=== PATIENT | male | born 1945 | race Caucasian/White ===

== ENCOUNTER → 2017-01-07 | Outpatient (CLI) | payer MEDICARE | END | disposition home or self-care (01) | LOC: PTMAIN 10:56 | PROVIDERS: ATTEND Otolaryngology | DX: K21.9 Gastro-esophageal reflux disease without esophagitis (principal); M12.9 Arthropathy, unspecified | CPT/HCPCS: 31579; 94060; 94726; 94729 ==

== ENCOUNTER → 2017-01-12 | Outpatient (CLI) | payer MEDICARE ==
--- NOTE | 2017-01-12 08:42 | CT ---
EXAMINATION TYPE: CT sinus wo con DATE OF EXAM: 01/12/2017 8:28 AM COMPARISON: NONE HISTORY: Patient complains of chronic sinus drainage, post nasal drainage, and voice loss x2 years. CT DLP: 667.3 mGycm CONTRAST: None The paranasal sinuses are examined in the axial plane at 2 mm thick sections. Reconstructed images i n the coronal plane were obtained. There is dental amalgam scatter artifact Very minimal medial wall right maxillary mucosal thickening is present. Left maxillary sinus is clear . There is opacification of a mid right ethmoid air cell. Remaining ethmoid air cells are clear. Th e sphenoid sinuses are clear. The frontal sinuses are clear. The septum is evaluated. There is septal deviation to the left. The ostiomeatal units are patent. Mastoid air cells within the [id number] are clear IMPRESSIONS: 1. Minimal mucosal thickening right maxillary sinus and mid right ethmoid air cell
== END ==
LOC: RADCTMAIN 08:12
PROVIDERS: ATTEND Otolaryngology
DX: J32.0 Chronic maxillary sinusitis (principal)
CPT/HCPCS: 70486

== ENCOUNTER → 2017-03-26 | Outpatient (CLI) | payer MEDICARE ==
--- NOTE | 2017-03-26 12:44 | PN ---
DATE OF SERVICE: 03/26/2017 The 71-year-old gentleman has been followed in the [facility] for treatment of obstructive sleep apnea-hypopnea syndrome. Patient continued to use his CPAP equipment every night for the whole night without significant problems with nasal PLO mask. No snoring with the machine. No sleepiness. [place] Sleepiness Scale is 4. Patient brought his CPAP unit. I checked machine, usage is 100% of the time more than 4 hours, average 8 hours per night. Pressure is 9 cm of water. Leak is 19 L/min. Apnea-hypopnea index was 6.2 related to several central apneas. MEDICATIONS: Pravastatin, dicyclomine, amlodipine, Claritin. During physical exam, patient in no distress. BP 136/77, HR 64, RR 16. Height 5, 8. Weight 183 which is 5 pounds more than during the titration. BMI 27.8. Temperature 97.9. Oxygen saturation at room air 93%. Extremely low position of soft palate. Neck: Supple. No JVD. Thyroid is not palpable. LUNGS: Clear to percussion and to auscultation. Good air exchange. No wheezing or rhonchi. HEART: S1, S2 regular. No murmurs, gallops, or rubs. ABDOMEN: Soft and nontender. Bowel sounds are present. No organomegaly appreciated. EXTREMITIES: No clubbing or cyanosis. COORDINATING PRODUCER: Awake, alert, and oriented x3. Cranial nerves 2 to 7 intact. There is no fasciculation or atrophy noted. No focal deficits observed. IMPRESSION: 1. Obstructive sleep apnea-hypopnea syndrome. Patient demonstrated 100% compliance with treatment, benefiting from treatment. 2. Hypertension. 3. History of ( ). 4. Hyperlipidemia. 5. Back problem. 6. Status post total hip replacement. 7. Status post pneumonia in the past. PLAN: 1. Continue treatment with CPAP with the same pressure. Patient has minimal abnormalities of respiration related to central sleep apnea, but I think we do not need any changes of treatment at the present time. 2. Sleep hygiene with regular time in bed for at least 8 hours. 3. No driving if feeling any sleepiness. 4. The patient should receive new set of the mask every 4 months. Thank you very much for allowing me to participate in the management of your patient. Sincerely, Lg Grajeda MD, PhD, FAASM. Diplomat of [place] [employer], Sleep Medicine Board by [place] [employer] [place] [employer] [facility] [place]
== END | disposition home or self-care (01) ==
LOC: SLEEP 10:51
PROVIDERS: ATTEND Internal Medicine
DX: G47.33 Obstructive sleep apnea (adult) (pediatric) (principal); E78.5 Hyperlipidemia, unspecified; I10 Essential (primary) hypertension; Z79.899 Other long term (current) drug therapy; Z91.09 Other allergy status, other than to drugs and biological substances

== ENCOUNTER → 2018-04-08 | Outpatient (CLI) | payer MEDICARE ==
--- NOTE | 2018-04-08 17:23 | PN ---
PROGRESS NOTE DATE OF SERVICE: 04/08/2018 This patient is a 72-year-old gentleman who has been followed in the sleep center for treatment of obstructive sleep apnea-hypopnea syndrome. Patient continues successfully using his CPAP equipment every night for the whole night without significant problems related to mask fitting, pressure or humidification. [place] Sleepiness Scale today is 3. I checked the patient's CPAP unit. CPAP pressure is 9 cm of water. Usage is 100% of the time for more than 4 hours, average 7.6 hours. Leak is 70 L/minute, which is acceptable. Apnea-hypopnea index reading for the last month is 3.8, which is in normal range. MEDICATIONS: 1. Pravastatin. 2. Dicyclomine. 3. Amlodipine. 4. Claritin. PHYSICAL EXAMINATION: GENERAL A pleasant gentleman without distress. VITAL SIGNS :BP 119/65, HR 58, RR 16, height 5 feet 8 inches, weight 183, which is the same as one year ago. BMI 27.8, temperature 98.2, oxygen saturation at room air 94% HEENT: PERRLA, EOMI. Evaluation of oropharynx showed tongue protrudes midline; extremely low position of soft palate. NECK: Supple. No JVD. Thyroid is not palpable. LUNGS: Clear to percussion and to auscultation. Good air exchange. No wheezing or rhonchi. HEART: S1, S2 regular. No murmurs, gallops or rubs. ABDOMEN: Soft and nontender. Bowel sounds are present. No organomegaly appreciated. EXTREMITIES : No clubbing or cyanosis. POWER SWITCHBOARD OPERATOR: Awake, alert, and oriented X3. Cranial nerves 2 to 7 intact. There is no fasciculation or atrophy. noted. No focal deficits observed. IMPRESSION: 1. Obstructive sleep apnea-hypopnea syndrome. Patient has demonstrated 100% compliance with treatment, benefitting from treatment. 2. Hypertension. 3. Hyperlipidemia. 4. Back problems. 5. Status post total hip replacement. 6. Status post pneumonia in the past. 7. Status post basal cell carcinoma removed from right leg in 2013. PLAN: 1. Patient will continue to use his CPAP equipment every night for the whole night. 2. Watching weight. 3. Sleep hygiene with regular time in bed for at least 8 hours. 4. No driving if feeling any sleepiness. 5. Prescription for all necessary CPAP supplies, including mask, tube, filters. 6. Follow-up visit in one year or earlier if patient has any problems. Thank you very much for allowing me to participate in the management of your patient. Sincerely, Lg Grajeda MD, PhD, FAASM Diplomat of [place] [employer] [place] [employer] [facility] [place] MMNARDAL / BONITA: [id number] /
== END | disposition home or self-care (01) ==
LOC: SLEEP 14:48
PROVIDERS: ATTEND Internal Medicine
DX: G47.33 Obstructive sleep apnea (adult) (pediatric) (principal); I10 Essential (primary) hypertension; E78.5 Hyperlipidemia, unspecified; Z96.641 Presence of right artificial hip joint; Z79.899 Other long term (current) drug therapy

== ENCOUNTER 2019-01-13 11:37 | Day surgery (SDC) | payer MEDICARE ==
[2019-01-10 14:07] VITALS: BMI 26.6
[~2019-01-13 11:37] MED LIST: LACTATED RINGERS 1,000 ML IV SCH; LIDOCAINE 1% 20 ML VIAL (10MG/ML) FOR IV START INTRADERMA PRN
[2019-01-13 12:06] VITALS: TEMP 98.5
[2019-01-13 12:07] LABS: Glucose,Whole Blood 86 mg/dL (75-99)
[2019-01-13] MEDS ORDERED: ONDANSETRON 4 MG/2 ML VIAL IVP ONE (12:09)
[2019-01-13] MEDS ORDERED: PROPOFOL 10 MG/ML 20 ML VIAL IV ONE (12:27)
[2019-01-13] MEDS ORDERED: LIDOCAINE 1% INJ 10MG/ML (20 ML MDV) ONE (12:27)
[2019-01-13 13:04] VITALS: RESP 18
[2019-01-13 13:24] VITALS: BP 104/51; PULSE 64
--- NOTE | 2019-01-13 13:24 | P.PCN ---
Date of Procedure: 01/13/19 Procedure(s) Performed: Procedure: Total colonoscopy. Preoperative diagnosis: Positive cologuard test. Postoperative diagnosis: Exam within normal limits. Preparation: HalfLytely prep. Sedation: Was provided by anesthesia. Brief clinical history: The patient is a 73-year-old male who is scheduled for this evaluation because of positive Cologuard test. The patient has no abdominal complaints, leading or anemia. His last colonoscopy was around 12 years ago. Procedure: With the patient on his left lateral decubitus position and after informed consent and adequate sedation, the perianal area was inspected and it did not show any fissures or fistulas. There were no masses felt on digital rectal examination. The Olympus CFH 190L video colonoscope was then inserted in the rectum in the usual fashion and advanced to the cecum. The mucosa appeared healthy. No obvious polyps or tumors were seen or any obvious diverticular disease or other pathology. I retroflexed the endoscope in the rectum before the endoscope was withdrawn. The patient tolerated the procedure well Plan: The patient was reassured. In the absence of upper GI complaints or anemia, I did not recommend an upper GI workup at this time and that can be kept as a contingency. He will follow up with you as planned and further plans will be made based on his course.
== END 2019-01-13 13:37 | disposition home or self-care (01) ==
LOC: ORWHC2ENDO 11:37
DX: R19.5 Other fecal abnormalities (principal); K21.9 Gastro-esophageal reflux disease without esophagitis; J44.9 Chronic obstructive pulmonary disease, unspecified; I10 Essential (primary) hypertension; E78.5 Hyperlipidemia, unspecified; G47.33 Obstructive sleep apnea (adult) (pediatric); Z85.828 Personal history of other malignant neoplasm of skin; Z91.030 Bee allergy status; Z91.013 Allergy to seafood; Z79.899 Other long term (current) drug therapy
CPT/HCPCS: 45378; J2405; J2001; J2704

== ENCOUNTER → 2019-02-01 | Outpatient (CLI) | payer MEDICARE | END | disposition home or self-care (01) | LOC: CPPFTMAIN 11:43 | PROVIDERS: ATTEND Family Medicine | DX: J44.9 Chronic obstructive pulmonary disease, unspecified (principal) | CPT/HCPCS: 94060; 94726; 94729 ==

== ENCOUNTER → 2019-04-07 | Outpatient (CLI) | payer MEDICARE ==
--- NOTE | 2019-04-07 12:15 | PN ---
PROGRESS NOTE DATE OF SERVICE: 04/07/2019 73-year-old gentleman who has been followed in the Sleep Center for treatment of obstructive sleep apnea-hypopnea syndrome. Patient successfully continued to use his CPAP equipment every night for the whole night. No snoring while using his CPAP. I checked his CPAP unit. CPAP pressure is 9 cm of water. Usage is 30/30 nights for more than 4 hours. Average usage is 7.7 hours. Leak is 18 L/minute, which is borderline. Apnea-hypopnea index reading for the last month is 3.5, which is normal range, for the last year in the range of 5, which is acceptable. [place] Sleepiness Scale today is only 1. Recently patient had exacerbation of COPD. On prednisone with decreasing dose until a few more days. MEDICATIONS: Prednisone, cetirizine, omeprazole, amlodipine, atorvastatin, albuterol on a p.r.n. basis. PHYSICAL EXAMINATION: During physical exam, patient in no distress. BP 137/66, HR 58, RR 16, height 5 feet 8 inches, weight 187 pounds. Body mass index 28.4, temperature 98.1, oxygen saturation at room air 94%. HEENT: Oropharynx extremely low soft palate, Mallampati 4. Neck Supple, no JVD. Thyroid is not palpable. LUNGS Clear to percussion and to auscultation. Good air exchange. No wheezing or rhonchi. HEART S1, S2 regular. No murmurs, gallops, or rubs. ABDOMEN Soft and nontender. Bowel sounds are present. No organomegaly appreciated. EXTREMITIES No clubbing or cyanosis. LEATHER ROLLER Awake, alert, and oriented X3. Cranial nerves 2 to 7 intact. There is no fasciculation or atrophy. noted. No focal deficits observed. IMPRESSION: 1. Obstructive sleep apnea-hypopnea syndrome. The patient demonstrated 100% compliance with treatment benefitting from treatment. 2. Hypertension. 3. History of chronic obstructive pulmonary disease. 4. Hyperlipidemia. 5. Back problems. 6. Status post total right hip replacement. 7. Status post bilateral cataract surgery. 8. Status post retina repair surgery on the right side. 9. Status post right shoulder repair. PLAN: 1. Patient will continue to use CPAP equipment every night for the whole night. 2. We will maintain all necessary CPAP prescriptions including a prescription for a nasal pillow, mask, AirFit P 10 large size, regular tube filters. Thank you very much for allowing me to participate in management of your patient. Sincerely, Lg Grajeda MD, PhD, FAASM Diplomat of [place] [employer] [place] [employer] [facility] [place] MMODL / MARGEN: [id number] /
== END | disposition home or self-care (01) ==
LOC: SLEEP 11:29
PROVIDERS: ATTEND Internal Medicine
DX: G47.33 Obstructive sleep apnea (adult) (pediatric) (principal); I10 Essential (primary) hypertension; J44.1 Chronic obstructive pulmonary disease with (acute) exacerbation; E78.5 Hyperlipidemia, unspecified; M54.9 Dorsalgia, unspecified; Z96.641 Presence of right artificial hip joint; Z98.42 Cataract extraction status, left eye; Z98.41 Cataract extraction status, right eye; Z99.89 Dependence on other enabling machines and devices; Z98.890 Other specified postprocedural states; Z79.52 Long term (current) use of systemic steroids

== ENCOUNTER → 2019-04-13 | Outpatient (CLI) | payer MEDICARE ==
--- NOTE | 2019-04-13 11:02 | CT ---
EXAMINATION TYPE: CT chest wo con DATE OF EXAM: 04/13/2019 COMPARISON: None HISTORY: Chronic cough CT DLP: 480 mGycm, Automated exposure control for dose reduction was used. CONTRAST: Performed injected with 0 mL of Isovue 300. TECHNIQUE: Axial images were obtained at 5 mm thick sections. Reconstructed images are reviewed on TappnGo computer in the coronal plane. FINDINGS: Portion of the thyroid visualized is normal. There is a 0.6 cm nodule adjacent to the major fissure on the right in the upper lung field. Series 4 image 31. No enlarged mediastinal or hilar adenopathy is evident. The ascending aorta diameter at the level o f the main pulmonary artery is 3.2 cm. The main pulmonary artery diameter at the bifurcation is 2.4 cm. Some mild coronary artery calcification is present. Limited CT sections are obtained through the upper abdomen. There is a 1.1 cm cyst at the medial righ t lobe liver measuring 2 Hounsfield units IMPRESSIONS: 1. Solitary 0.6 cm nodule right upper lung field new the major fissure. 2. Hepatic cyst. 3. Follow-up exam in 3-6 months is recommended for reevaluation.
== END | disposition home or self-care (01) ==
LOC: RADCTMAIN 09:33
PROVIDERS: ATTEND Internal Medicine
DX: R91.1 Solitary pulmonary nodule (principal); Z91.013 Allergy to seafood
CPT/HCPCS: 71250

== ENCOUNTER 2019-05-25 11:45 | Day surgery (SDC) | payer MEDICARE ==
[2019-05-23 13:09] VITALS: BMI 26.6
[~2019-05-25 11:45] MED LIST changes: +ALBUTEROL NEB (CONC) 2.5 MG/0.5 ML INHALATION ONE; +LIDOCAINE 2% (PF) 20 MG/ML 5 ML VIAL INHALATION ONE; +LIDOCAINE VISCOUS 300 MG/15 ML CUP MUCOUS MEM ONE; +SODIUM CHLORIDE 0.9% 1,000 ML IV SCH
[2019-05-25 12:16] VITALS: TEMP 97.9
[2019-05-25] MEDS ORDERED: KETAMINE 10 MG/ML 20 ML VIAL ONE (13:32)
[2019-05-25] MEDS ORDERED: PROPOFOL 10 MG/ML 20 ML VIAL IV ONE (13:32)
[2019-05-25] MEDS ORDERED: GLYCOPYRROLATE 0.2 MG/ML 2 ML VIAL ONE (13:32)
[2019-05-25] MEDS ORDERED: LIDOCAINE 1% INJ 10MG/ML (20 ML MDV) ONE (13:32)
[2019-05-25] MEDS ORDERED: MIDAZOLAM 2 MG/2 ML VIAL ONE (13:32)
[2019-05-25] MEDS ORDERED: LIDOCAINE 2% INJ 20 MG/ML INTRATRACH ONE (13:51)
[2019-05-25 14:18] VITALS: BP 112/73; PULSE 70; RESP 16
[2019-05-25 17:16] LABS: Appearance,BF Hazy; Color,BF Colorless; Nucleated Cells, Body Fluid 72 /uL; RBC, Body Fluid 248 /uL
[2019-05-25 17:29] LABS: Mononuclear WBC,Body Fluid 11 %; Polynuclear WBC,Body Fluid 89 %; Total Cells Counted,Body Fluid 100
--- NOTE | 2019-05-25 19:02 | PCN ---
PROCEDURE NOTE OPERATIVE REPORT: Bronchoscopy and bronchoalveolar lavage of the right middle lobe. PREOPERATIVE DIAGNOSIS: Chronic cough. POSTOPERATIVE DIAGNOSIS: Chronic cough. INDICATION FOR THE PROCEDURE: Chronic cough. ANESTHESIA USED: IV conscious sedation. DESCRIPTION OF THE PROCEDURE: The patient was prepared according to the bronchoscopy protocol. O2 was applied via nasal cannula. We monitored his O2 saturation continuously, blood pressure was intermittently monitored, and cardiac rhythm was continuously monitored. After adequate IV conscious sedation, the left naris was anesthetized, the bronchoscope was inserted through the left naris down to the area of the vocal cords. Vocal cords were patent. Lidocaine was applied over the vocal cords, and the bronchoscope was advanced further down to the trachea. Thorough examination done of the trachea, right upper lobe, right middle lobe, right lower lobe, left upper lobe, lingula, and left lower lobe. There was no evidence of any endobronchial pathology whatsoever. There was no evidence of any purulent secretions. Then, the bronchoscope was wedged into the right middle lobe, and bronchoalveolar lavage of the right middle lobe was done. The procedure was well tolerated, no evidence of any immediate complications. The fluid obtained from the right upper lobe was sent for different diagnostic cultures. MMODL / IJN: [id number] /
== END 2019-05-25 15:02 | disposition home or self-care (01) ==
LOC: ORWHC2ENDO 11:45
PROVIDERS: ATTEND Internal Medicine
DX: R05 Cough (principal); I10 Essential (primary) hypertension; E78.5 Hyperlipidemia, unspecified; G47.33 Obstructive sleep apnea (adult) (pediatric); J44.9 Chronic obstructive pulmonary disease, unspecified; N42.9 Disorder of prostate, unspecified; Z91.030 Bee allergy status; Z91.013 Allergy to seafood; Z87.891 Personal history of nicotine dependence; Z85.828 Personal history of other malignant neoplasm of skin; Z79.899 Other long term (current) drug therapy
CPT/HCPCS: 31624; 87070; 87077; 87102; 87116; 87186; 87205; 87206; 87252; 87496; 87498; 87502; 87529; 87634; 87798; 89050

== ENCOUNTER → 2020-01-24 | Outpatient (CLI) | payer MEDICARE ==
--- NOTE | 2020-01-24 13:06 | CT ---
EXAMINATION TYPE: CT chest wo con DATE OF EXAM: 01/24/2020 COMPARISON: CT chest dated 04/13/2019 HISTORY: Cough for 16+ months CT DLP: 340.5 mGycm. Automated Exposure Control for Dose Reduction was Utilized. TECHNIQUE: CT scan of the thorax is performed without IV contrast. FINDINGS: LUNGS: Smaller known 4 mm pulmonary nodule along the right interlobar fissure previously measured 6 m m and likely represents an intrafissural lymph node given the smaller size on the current exam. Addit ional 4 mm solid pulmonary nodule in the superior segment of the right lower lobe is retrospectively stable from the prior. No new focal consolidation seen. There is no pleural effusion or pneumothora x seen. The tracheobronchial tree is patent. MEDIASTINUM: Lack of IV contrast is noted to limit evaluation for mediastinal and especially hilar ad enopathy. There are no definitive greater than 1 cm hilar or mediastinal lymph nodes. There is a trac e pericardial effusion seen anteriorly measuring 8 mm in greatest thickness. Moderate coronary calcif ications. OTHER: Small hiatal hernia. Partially visualized probable right midpole renal cyst measuring 1.4 cm. Probable left renal sinus cysts. Punctate calcification of the pancreatic uncinate process, sequela o f chronic pancreatitis. There is redemonstration of 2 fluid attenuated hepatic cysts. Moderate multil evel degenerative change of the thoracic spine. IMPRESSION: 1. Stable 4 mm superior segment right lower lobe pulmonary nodule, retrospectively unchanged from the prior. 2. Decrease in size of the right-sided nodule along the interlobar fissure, likely an intrafissural b enign lymph node. 3. Moderate coronary artery calcifications, marker of coronary artery disease. Trace pericardial effu jeremy is also seen.
== END | disposition home or self-care (01) ==
LOC: RADCTMAIN 09:31
PROVIDERS: ATTEND Internal Medicine
DX: J98.4 Other disorders of lung (principal); R91.1 Solitary pulmonary nodule; I25.10 Atherosclerotic heart disease of native coronary artery without angina pectoris; Z91.013 Allergy to seafood; Z88.1 Allergy status to other antibiotic agents
CPT/HCPCS: 71250

== ENCOUNTER → 2020-01-31 | Outpatient (CLI) | payer MEDICARE ==
[~2020-01-31] MED LIST changes: -ALBUTEROL NEB (CONC) 2.5 MG/0.5 ML INHALATION ONE; -LACTATED RINGERS 1,000 ML IV SCH; -LIDOCAINE 1% 20 ML VIAL (10MG/ML) FOR IV START INTRADERMA PRN; -LIDOCAINE 2% (PF) 20 MG/ML 5 ML VIAL INHALATION ONE; -LIDOCAINE VISCOUS 300 MG/15 ML CUP MUCOUS MEM ONE; +REGADENOSON 0.4 MG/5 ML SYRINGE IV ONE; -SODIUM CHLORIDE 0.9% 1,000 ML IV SCH
--- NOTE | 2020-01-31 11:36 | NM ---
EXAMINATION TYPE: NM stress lexiscan cardiolite DATE OF EXAM: 01/31/2020 COMPARISON: Prior study October 20, 2012. HISTORY: Personal history of hypertension and tobacco use in the past along with hypercholesteremia a nd COPD with prior heart catheterization presents with chest pain, difficulty breathing, and abnormal EKG with left bundle branch block. TECHNIQUE: After the intravenous administration of 9.9 mCi Tc 99m Sestamibi - Cardiolite resting SPE CT images acquired 65 minutes post injection. The patient received 0.4mg Lexiscan, 27 mCi Tc 99m Sestamibi - Stress images obtained 30 minutes post injection FINDINGS: Review of stress and rest SPECT images demonstrates diminished radiotracer uptake involving the later al left ventricular wall extending inferiorly on both rest and stress SPECT images suspicious for are a of old infarct. This is noted new in the interval from 2012 study. No convincing evidence for rever sible ischemia. Gated analysis shows overall estimated left ventricular ejection fraction of 57 %. IMPRESSION: As above.
--- NOTE | 2020-01-31 14:16 | EST ---
EXERCISE STRESS AGE: 74 SEX: M HT: 5'9" WT: 177 PROTOCOL: Lexiscan Cardiolite Stress Test HEART RATE REST: 62 BLOOD PRESSURE REST: 134/74 MAXIMUM HEART RATE ACHIEVED: 88 MAXIMUM BLOOD PRESSURE: 134/74 INDICATIONS: Left bundle branch block/abnormal EKG. CLINICAL INFORMATION: STRESS DATA: Heart rate 62, blood pressure is 134/74 mmHg. Baseline EKG showed sinus mechanism, 0.4 mg of Lexiscan given over 15 seconds per protocol. Max heart rate was 88 beats per minute. Maximum pressure was 134/84 mmHg. Clinically, the patient did not have any symptoms and the EKG did not show any significant ST or T-wave abnormalities concerning for ischemia. CONCLUSION: 1. Nondiagnostic electrocardiogram stress testing in response to Lexiscan. 2. Please follow up on the Cardiolite portion on separate report from Radiology Department. MMODL / IJN: [id number] /
== END | disposition home or self-care (01) ==
LOC: RADNMMAIN 08:19
PROVIDERS: ATTEND Nurse Practitioner Family
DX: R94.31 Abnormal electrocardiogram [ECG] [EKG] (principal)
CPT/HCPCS: 93017; 78452; A9500; J2785

== ENCOUNTER 2020-02-16 07:47 | Day surgery (SDC) | payer MEDICARE ==
[2020-02-13 12:55] VITALS: BMI 25.4
[~2020-02-16 07:47] MED LIST changes: +ALPRAZolam 0.25 MG TAB PO PRN; +ALPRAZolam 0.5 MG TAB PO PRN; +ASPIRIN 325 MG TAB PO ONE; +ATORVASTATIN 80 MG TAB PO ONE; +NITROGLYCERIN SL TABS 0.4 MG TAB SUBLINGUAL PRN; -REGADENOSON 0.4 MG/5 ML SYRINGE IV ONE; +SODIUM CHLORIDE 0.9% 1,000 ML in EMPTY BAG 1 BAG IV ONE
[2020-02-16 08:05] VITALS: RESP 16; TEMP 97.7
[2020-02-16] MEDS ORDERED: LIDOCAINE 1% INJ 10MG/ML (20 ML MDV) ONE (08:28)
[2020-02-16] MEDS ORDERED: fentaNYL (PF) 50 MCG/ML 2 ML AMP ONE (08:28)
[2020-02-16] MEDS ORDERED: HEPARIN SODIUM 1,000 UN/ML (10ML VL) ONE (08:28)
[2020-02-16] MEDS ORDERED: VERAPAMIL 2.5 MG/ML 2 ML AMP ONE (08:28)
[2020-02-16 08:30] LABS: Basophils % (A) 0 %; Eosinophils % (A) 0 %; HCT 44.9 % (39.0-53.0); HGB 14.7 gm/dL (13.0-17.5); Lymphocytes # (A) 0.8 k/uL (1.0-4.8); Lymphocytes % (A) 7 %; MCH 30.2 pg (25.0-35.0); MCHC 32.8 g/dL (31.0-37.0); MCV 92.1 fL (80.0-100.0); Mean Platelet Volume 7.6; Monocytes # (A) 0.4 k/uL (0-1.0); Monocytes % (A) 3 %; Neutrophils # (A) 10.9 k/uL (1.3-7.7); Neutrophils % (A) 89 %; Platelet Count 257 k/uL (150-450); RBC 4.87 m/uL (4.30-5.90); RDW 13.8 % (11.5-15.5); WBC 12.3 k/uL (3.8-10.6)
[2020-02-16] MEDS ORDERED: fentaNYL (PF) 50 MCG/ML 2 ML AMP IV ONE (08:30)
[2020-02-16] MEDS ORDERED: LIDOCAINE 1% INJ 10MG/ML (20 ML MDV) SQ ONE (08:33)
[2020-02-16] MEDS ORDERED: VERAPAMIL SYRINGE (5 MG/10 ML) INTRAARTER ONE (08:36)
[2020-02-16 08:38] LABS: African American GFR (CKD) >90 (>60 ml/min/1.73 sqM); Anion Gap 8 mmol/L; Blood Urea Nitrogen 25 mg/dL (9-20); Calcium 9.7 mg/dL (8.4-10.2); Carbon Dioxide 24 mmol/L (22-30); Chloride 106 mmol/L (98-107); Glucose 127 mg/dL (74-99); Non-African American GFR(CKD) 85 (>60 ml/min/1.73 sqM); Potassium 4.3 mmol/L (3.5-5.1); Sodium 138 mmol/L (137-145)
[2020-02-16] MEDS ORDERED: HEPARIN SODIUM 1,000 UN/ML (10ML VL) IV ONE (08:43)
[2020-02-16] MEDS ORDERED: IOPAMIDOL-370 125ML BTL INJ ONE (08:43)
[2020-02-16] MEDS ORDERED: RX INFO: IV CONTRAST WAS GIVEN 1 EACH MISC MISCELLANE PRN (08:59)
[2020-02-16] MEDS ORDERED: NON FORMULARY DRUG (Omeprazole [Omeprazole] 40 MG) PO SCH (09:00)
[2020-02-16] MEDS ORDERED: NON FORMULARY DRUG (Aspirin [Adult Low Dose Aspirin Ec] 81 MG) PO SCH (09:00)
[2020-02-16] MEDS ORDERED: amLODIPine 5 MG TAB PO SCH (09:00)
[2020-02-16] MEDS ORDERED: NON FORMULARY DRUG (Cetirizine Hcl [Zyrtec] 10 MG) PO SCH (09:00)
[2020-02-16] MEDS ORDERED: SODIUM CHLORIDE 0.9% 1,000 ML IV SCH (09:00)
[2020-02-16] MEDS ORDERED: MULTIVITAMINS, THERA 1 EACH TAB PO SCH (09:00)
--- NOTE | 2020-02-16 09:15 | CC ---
CARDIAC CATHETERIZATION REPORT Mr. Rivera is a 74-year-old male who has been complaining of progressive symptoms of dyspnea on exertion, palpitation as well as chest discomfort with physical activity. He had a stress test that showed a defect that was not noted in the past. In view of that, recommendation was made regarding cardiac catheterization. The procedure as well as the risks and the complications were discussed with the patient who is in full understanding and agreement. PROCEDURE: Patient was brought to distillery laborer in a fasting semi-sedated state after receiving fentanyl and Benadryl and achieving moderate conscious sedated state. Using Xylocaine anesthesia in the Seldinger technique, a 6-Swazi sheath was introduced in the right radial artery. Selective right and left coronary angiography was performed using 5- Swazi 3.5 bend right and left Lauro catheter. Multiple views of the coronary artery including hemiaxial views were obtained. Following that a 5-Swazi tight pigtail catheter was introduced in the left ventricle and pressures were calculated. Following that, catheter and sheath were removed. Hemostasis was obtained with deployment of a TR band. There was no immediate complication. Patient was returned to his room in stable condition. Of note, the patient received 4000 units of intravenous heparin as well as intra-arterial verapamil. FINDINGS: LEFT MAIN: This is a short size vessel bifurcating left circumflex, left anterior descending artery. Left main coronary artery has no evidence of high-grade stenosis. LEFT ANTERIOR DESCENDING ARTERY: This is a large-sized vessel reaching toward the apex with a wraparound apex segment giving rise to a large diagonal branch. The left anterior descending artery after the takeoff of the first diagonal branch there is a 10% to 20% plaque. The rest of the vessel has no high-grade stenosis. LEFT CIRCUMFLEX: This is a codominant large size vessel giving rise to a large very proximal obtuse marginal branch distally bifurcating PDA and posterolateral segment and branches. The left circumflex has mild intimal disease proximally of 10% to 20%. The rest of the vessel has no high-grade stenosis. RIGHT CORONARY ARTERY: This is a codominant vessel, moderate in caliber, giving rise to a PDA and PLV distally. The right coronary artery has a 10% to 20% proximal plaque. The rest of the vessel has no high-grade stenosis. LEFT VENTRICULOGRAM: Left ventriculogram was not performed. HEMODYNAMICS: There was no gradient across the aortic valve. The left ventricular end- diastolic pressure was 14 to 16 mmHg. CONCLUSION: 1. Mild triple vessel coronary disease. 2. Codominant system. RECOMMENDATION: In view of finding anatomy, I recommend to continue medical therapy with aggressive coronary risk modifications that have been initiated. Those findings and recommendation were discussed with the patient and his family who are in full understanding and agreement. Duration of procedure is 15 minutes. MMNARDAL / MARGEN: [id number] /
[2020-02-16 11:23] VITALS: BP 131/70; PULSE 55
[2020-02-16] MEDS ORDERED: PRAVASTATIN SODIUM 80 MG TAB PO SCH (21:00)
[2020-02-16] MEDS ORDERED: traZODone HCL 100 MG TAB PO SCH (21:00)
== END 2020-02-16 13:00 | disposition home or self-care (01) ==
LOC: CATHCVL 07:47
PROVIDERS: ATTEND Internal Medicine Interventional Cardiology
DX: I25.10 Atherosclerotic heart disease of native coronary artery without angina pectoris (principal); I10 Essential (primary) hypertension; E78.2 Mixed hyperlipidemia; Z87.891 Personal history of nicotine dependence; Z88.2 Allergy status to sulfonamides; Z79.82 Long term (current) use of aspirin; Z79.899 Other long term (current) drug therapy
CPT/HCPCS: 93458; 80048; 85025; C1769; C1894; J2001; J3010; J1644; Q9967

== ENCOUNTER → 2020-05-22 | Outpatient (CLI) | payer MEDICARE ==
[2020-05-22 14:35] LABS: HGB 14.5 gm/dL (13.0-17.5); MCH 31.7 pg (25.0-35.0); MCHC 33.8 g/dL (31.0-37.0); MCV 93.9 fL (80.0-100.0); Mean Platelet Volume 7.9; Platelet Count 233 k/uL (150-450); RBC 4.59 m/uL (4.30-5.90); RDW 13.7 % (11.5-15.5); WBC 8.2 k/uL (3.8-10.6)
== END | disposition home or self-care (01) ==
LOC: LABWHC1 13:24
PROVIDERS: ATTEND Surgery
DX: K40.30 Unilateral inguinal hernia, with obstruction, without gangrene, not specified as recurrent (principal)
CPT/HCPCS: 36415; 85027

== ENCOUNTER 2020-05-30 08:56 | Day surgery (SDC) | payer MEDICARE ==
[2020-05-28 15:39] VITALS: BMI 24.8
[~2020-05-30 08:56] MED LIST changes: +ACETAMINOPHEN TAB 500 MG TAB PO ONE; -ALPRAZolam 0.25 MG TAB PO PRN; -ALPRAZolam 0.5 MG TAB PO PRN; -ASPIRIN 325 MG TAB PO ONE; -ATORVASTATIN 80 MG TAB PO ONE; +DEXAMETHASONE SOD PHOSPHATE 10 MG/ML 1 ML VIAL IV ONE; +HEPARIN SODIUM,PORCINE 5,000 UNIT/ML 1 ML VIAL SQ ONE; +HYDROmorphone 0.5 MG/0.5 ML SYRINGE IVP PRN; +LACTATED RINGERS 1,000 ML IV SCH; +LIDOCAINE 1% (10MG/ML) FOR IV START INTRADERMA PRN; +MIDAZOLAM 2 MG/2 ML VIAL IV PRN; -NITROGLYCERIN SL TABS 0.4 MG TAB SUBLINGUAL PRN; +ONDANSETRON 4 MG/2 ML VIAL IVP ONE; -SODIUM CHLORIDE 0.9% 1,000 ML in EMPTY BAG 1 BAG IV ONE; +fentaNYL (PF) 50 MCG/ML 2 ML AMP IVP PRN
[2020-05-30 09:23] VITALS: TEMP 97.4
[2020-05-30] MEDS ORDERED: ACETAMINOPHEN TAB 500 MG TAB ONE (09:29)
[2020-05-30] MEDS ORDERED: HEPARIN SODIUM,PORCINE 5,000 UNIT/ML 1 ML VIAL ONE (09:29)
[2020-05-30] MEDS ORDERED: ONDANSETRON 4 MG/2 ML VIAL ONE (09:29)
--- NOTE | 2020-05-30 10:28 | P.GSHP ---
History of Present Illness H&P Date: 05/30/20 Chief Complaint: Right inguinal hernia This a 74-year-old male who presents today for laparoscopic robotic system repair of radial hernia. Patient developed a right inguinal mass. Using the office in a reducible inguinal hernia Past Medical History Past Medical History: Cancer, Chest Pain / Angina, COPD, GERD/Reflux, Hyperlipidemia, Hypertension, Prostate Disorder, Sleep Apnea/CPAP/BIPAP Additional Past Medical History / Comment(s): OCCASIONAL COUGH WHEN TALKING ,SKIN CA. USES CPAP, RIGHT INGUINAL HERNIA. History of Any Multi-Drug Resistant Organisms: MRSA Date of last positivie culture/infection: 05/25/19 MDRO Source:: BRONCH WASH Past Surgical History: Appendectomy, Heart Catheterization, Hernia Repair, Joint Replacement, Orthopedic Surgery, Prostate Surgery Additional Past Surgical History / Comment(s): LT KNEE SURG. LT ING HERNIA. RT SHOULDER. CARMENCITA CATARACTS. LASER OF PROSTATE. MULT BASAL CELL EXC. TOTAL RT HIP. RT EYE MACULAR PROC., HEART CATH 02/16/20. Past Anesthesia/Blood Transfusion Reactions: No Reported Reaction Additional Past Anesthesia/Blood Transfusion Reaction / Comment(s): unknown family anesthesia hx. Past Psychological History: No Psychological Hx Reported Past Alcohol Use History: Daily Additional Past Alcohol Use History / Comment(s): SMOKED 1967-69, 1 PPD EST. 1- 2 glasses wine or beer daily.. Past Drug Use History: None Reported - Past Family History Mother Family Medical History: No Reported History Medications and Allergies Home Medications Medication Instructions Recorded Confirmed Type Cetirizine HCl [Zyrtec] 10 mg PO DAILY 01/10/19 05/30/20 History Pravastatin Sodium [Pravachol] 80 mg PO HS 01/10/19 05/30/20 History Albuterol Inhaler (Mhu) [Ventolin 1 - 2 puff INHALATION RT-Q6H PRN 05/23/19 05/30/20 History Hfa Inhaler] Omeprazole 40 mg PO QAM 05/23/19 05/30/20 History amLODIPine [Norvasc] 5 mg PO BID 05/23/19 05/30/20 History traZODone HCL [Desyrel] 100 mg PO HS 05/23/19 05/30/20 History Aspirin [Adult Low Dose Aspirin EC] 81 mg PO DAILY 02/13/20 05/30/20 History Hydrochlorothiazide 25 mg PO DAILY 05/28/20 05/30/20 History Allergies Allergy/AdvReac Type Severity Reaction Status Date / Time bee venom protein (honey bee) Allergy Swelling Verified 05/30/20 09:18 iodine Allergy Anaphylaxis Verified 05/30/20 09:18 shellfish derived [Shellfish] Allergy Anaphylaxis Verified 05/30/20 09:18 Surgical - Exam Vital Signs Temp Pulse Resp BP Pulse Ox 97.4 F L 56 L 16 127/66 95 05/30/20 09:21 05/30/20 09:21 05/30/20 09:21 05/30/20 09:21 05/30/20 09:21 - General well developed, well nourished, no distress - Eyes PERRL - ENT normal pinna - Neck no masses - Respiratory normal expansion - Cardiovascular Rhythm: regular - Abdomen Abdomen: soft, non tender Hernia: inguinal (Right inguinal hernia) Assessment and Plan Assessment: Radial hernia. We'll perform laparoscopic robotic-assisted repair.
[2020-05-30] MEDS ORDERED: KETAMINE 10 MG/ML 20 ML VIAL ONE (10:33)
[2020-05-30] MEDS ORDERED: ePHEDrine SULFATE/0.9% NACL/PF 50 MG/5 ML SYRINGE IV ONE (10:33)
[2020-05-30] MEDS ORDERED: SUCCINYLCHOLINE CHLORIDE 100 MG/5 ML SYR IV ONE (10:33)
[2020-05-30] MEDS ORDERED: NEOSTIGMINE 1 MG/ML 10 ML VIAL ONE (10:33)
[2020-05-30] MEDS ORDERED: GLYCOPYRROLATE 0.2 MG/ML 2 ML VIAL ONE (10:33)
[2020-05-30] MEDS ORDERED: LIDOCAINE 1% INJ 10MG/ML (20 ML MDV) ONE (10:33)
[2020-05-30] MEDS ORDERED: fentaNYL (PF) 50 MCG/ML 2 ML AMP ONE (10:33)
[2020-05-30] MEDS ORDERED: PROPOFOL 10 MG/ML 20 ML VIAL IV ONE (10:33)
[2020-05-30] MEDS ORDERED: ROCURONIUM 10 MG/ML (5 ML VIAL) IV ONE (10:33)
[2020-05-30] MEDS ORDERED: MIDAZOLAM 2 MG/2 ML VIAL ONE (10:33)
[2020-05-30] MEDS ORDERED: KETOROLAC 30 MG/ML 1 ML VIAL ONE (10:33)
[2020-05-30] MEDS ORDERED: BUPIVACAIN-EPI 0.25%-1:200,000 30 ML VIAL SQ ONE (11:00)
--- NOTE | 2020-05-30 11:26 | P.OP ---
Date of Procedure: 05/30/20 Preoperative Diagnosis: Right inguinal hernia Postoperative Diagnosis: Right inguinal hernia Procedure(s) Performed: Laparoscopic robotic repair. Right inguinal hernia Excision of right cord lipoma Anesthesia: RAMON Surgeon: rTevor Dan Estimated Blood Loss (ml): 5 Pathology: other (Right cord lipoma) Condition: stable Disposition: PACU Description of Procedure: The patient's placed on the operating table in the supine position. The patient received general anesthesia. The patient's abdomen was prepped and draped in usual sterile fashion. The skin was anesthetized 1% local Xylocaine at the incision sites. Using an 11 blade a skin incision was made at the umbilicus. The fascia was grasped with a [place] and then the peritoneal cavity was entered with the Veress needle. Position of the Veress needle was confirmed with a positive drop test. After adequate insufflation a 5 mm trocar was placed into the peritoneal cavity. The Laparoscope was placed the peritoneal cavity. And a robotic 8 mm trocar was placed in the right lateral position and then another 8 mm robotic trochars placed in the left lateral position. The original 5 mm trocar was exchanged for a 12 mm trocar. The patient was placed in reverse Trendelenburg and then the patient was docked to the robot. Next the peritoneum over top of the hernia was incised and then using blunt and sharp dissection and electrocautery the hernia sac was dissected free from the floor of the inguinal canal. The cord lipoma was dissected free from the cord structures and sent to pathology. The hernia sac was completely reduced into the peritoneal cavity. And then using the Pro stock speculator mesh the hernia was repaired. The peritoneum was then sutured with 20V lock suture. The patient was then undocked the robot. The needle was withdrawn from the peritoneal cavity. The umbilical trocar site was closed with 0 Ethibond suture. The skin was closed interrupted 3-0 Monocryl suture. Dermabond dressing was applied. Patient was sent to recovery in stable condition.
[2020-05-30 13:04] VITALS: RESP 20
[2020-05-30] MEDS ORDERED: HYDROcodone/APAP 5-325MG 1 EACH TAB ONE (13:42)
[2020-05-30] MEDS ORDERED: HYDROcodone/APAP 5-325MG 1 EACH TAB PO ONE (13:44)
[2020-05-30] MEDS ORDERED: LACTATED RINGERS 1,000 ML IV ONE (16:00)
[2020-05-30] MEDS ORDERED: TAMSULOSIN 0.4 MG CAP.ER.24H PO ONE (16:00)
[2020-05-30 16:57] VITALS: BP 124/72; PULSE 57
== END 2020-05-30 17:34 | disposition home or self-care (01) ==
LOC: OR 08:56
PROVIDERS: ATTEND Surgery
DX: K40.90 Unilateral inguinal hernia, without obstruction or gangrene, not specified as recurrent (principal); I25.119 Atherosclerotic heart disease of native coronary artery with unspecified angina pectoris; I10 Essential (primary) hypertension; E78.5 Hyperlipidemia, unspecified; J44.9 Chronic obstructive pulmonary disease, unspecified; K21.9 Gastro-esophageal reflux disease without esophagitis; N42.9 Disorder of prostate, unspecified; G47.33 Obstructive sleep apnea (adult) (pediatric); Z79.82 Long term (current) use of aspirin; Z79.899 Other long term (current) drug therapy; Z88.8 Allergy status to other drugs, medicaments and biological substances; Z91.030 Bee allergy status; Z91.013 Allergy to seafood; Z87.891 Personal history of nicotine dependence; Z85.828 Personal history of other malignant neoplasm of skin; Z86.14 Personal history of Methicillin resistant Staphylococcus aureus infection; Z90.49 Acquired absence of other specified parts of digestive tract; Z98.890 Other specified postprocedural states; Z96.641 Presence of right artificial hip joint; Z98.42 Cataract extraction status, left eye; Z98.41 Cataract extraction status, right eye; Z90.79 Acquired absence of other genital organ(s)
CPT/HCPCS: 88302; 49650; C1781; J2250; J1644; J1100; J2710; J0690; J2405; J2001; J3010; J1885; J0330; J2704

== ENCOUNTER → 2020-08-22 | Outpatient (CLI) | payer MEDICARE ==
[2020-08-22 22:46] LABS: African American GFR (CKD) 86.8 (60.0-200.0); Albumin 4.3 g/dL (3.80-4.90); Albumin/Globulin Ratio 1.65 (1.60-3.17); Anion Gap 10.3 mmol/L (4.00-12.00); Calcium 9.5 mg/dL (8.7-10.3); Carbon Dioxide 22.7 mmol/L (21.6-31.8); Chol/HDL Ratio 3.3; Globulin 2.6 g/dL (1.6-3.3); LDL Cholesterol,Calculated 101.2 mg/dL (0.0-131.0); Non-African American GFR(CKD) 74.9 (60.0-200.0); Potassium 4.1 mmol/L (3.5-5.5); Total Bilirubin 0.8 mg/dL (0.3-1.2); Total Protein 6.9 g/dL (6.2-8.2); VLDL Calculation 20.8 mg/dL (5.00-40.00)
== END | disposition home or self-care (01) ==
LOC: LABWHC1 09:38
PROVIDERS: ATTEND Internal Medicine Interventional Cardiology
DX: E78.2 Mixed hyperlipidemia (principal)
CPT/HCPCS: 36415; 80053; 80061

== ENCOUNTER → 2020-09-13 | Outpatient (CLI) | payer MEDICARE ==
--- NOTE | 2020-09-13 17:23 | SFUN ---
SLEEP CENTER FOLLOW UP NOTE DATE OF SERVICE: 09/13/2020 A 74-year-old gentleman who has been followed in Sleep Center for treatment of obstructive sleep apnea-hypopnea syndrome. Patient successfully continues to use his CPAP equipment, except he complains when his CPAP unit starts to blink during the night and he has to cover the unit. [place] Sleepiness Scale today is 4. I checked the CPAP unit, pressure is 9 cm of water. Usage is 30/30 nights for more than 4 hours. Average usage is 8.1 hours per night. Leak is 30 L/minute which is high. Patient using nasal pillow mask. Apnea-hypopnea index, although normal 0.9. Sometimes patient experiencing dryness in the mouth and then he is adjusting his humidity and it does not bother him. MEDICATIONS: Amlodipine 5 mg twice daily, pravastatin 80 mg once daily, Trazodone 100 mg once daily at bedtime, omeprazole 40 mg once daily in the morning, hydrochlorothiazide 25 mg once daily in the morning, aspirin 81 mg once daily in the morning and cetirizine 10 mg once daily in the morning. PHYSICAL EXAM: Patient in no distress, BP 146/82, HR 78, RR 15, height 5 feet 8-1/4 inches, weight 175 pounds, BMI 26.4, temperature 98.5, oxygen saturation at room air 95%. OROPHARYNX: Extremely low position of soft, Mallampati 4. NECK: Supple, no JVD. Thyroid is not palpable. LUNGS: Clear to percussion and to auscultation. Good air exchange. No wheezing or rhonchi. HEART: S1, S2 regular. No murmurs, gallops, or rubs. ABDOMEN: Soft and nontender. Bowel sounds are present. No organomegaly appreciated. EXTREMITIES: No clubbing or cyanosis. PERSONNEL INTERVIEWER: Awake, alert, and oriented X3. Cranial nerves 2 to 7 intact. There is no fasciculation or atrophy. noted. No focal deficits observed. IMPRESSION: 1. Obstructive sleep apnea-hypopnea syndrome. Patient demonstrated 100% compliance with treatment, benefitting from treatment. Patient CPAP unit developed problems. 2. Hypertension. 3. History of COPD. 4. Hyperlipidemia. 5. Back problems. 6. Status post right hip replacement. 7. Status post bilateral cataract surgery. 8. Status post routine repair surgery in the right side. 9. Status post right shoulder repair. PLAN: 1. Prescription to replace CPAP unit. Unit is more than 5 years old, has some problems including blinking at night. 2. Sleep hygiene with regular time in bed for at least 7-1/2 to 8 hours. 3. Precautions related to driving. No driving if feeling sleepiness. 4. I will maintain all necessary prescription for PAP supplies including mask, tube, filters. 5. Watching weight. 6. No driving if feeling sleepiness. 7. Follow-up visit in 6 months or earlier if patient has any problems. Thank you very much for allowing me to participate in the management of your patient. Sincerely, Lg Grajeda MD, PhD, FAASM Diplomat of [employer] [employer] Desizing Machine Operator of [facility] [place] MMODL / MARGEN: [id number] /
== END | disposition home or self-care (01) ==
LOC: SLEEP 14:04
PROVIDERS: ATTEND Internal Medicine
DX: G47.33 Obstructive sleep apnea (adult) (pediatric) (principal); I10 Essential (primary) hypertension; E78.5 Hyperlipidemia, unspecified; Z96.641 Presence of right artificial hip joint; Z99.89 Dependence on other enabling machines and devices; Z79.891 Long term (current) use of opiate analgesic; Z79.899 Other long term (current) drug therapy; Z79.82 Long term (current) use of aspirin; Z98.42 Cataract extraction status, left eye; Z98.41 Cataract extraction status, right eye; Z98.890 Other specified postprocedural states; Z87.09 Personal history of other diseases of the respiratory system

== ENCOUNTER → 2021-02-27 | Outpatient (CLI) | payer MEDICARE ==
--- NOTE | 2021-02-27 16:17 | SFUN ---
SLEEP CENTER FOLLOW UP NOTE DATE OF SERVICE: 02/27/2021 This 75-year-old gentleman has been followed in sleep center for treatment of obstructive sleep apnea-hypopnea syndrome. Recently because of problems with his CPAP unit, his CPAP equipment had been replaced with a new CPAP unit. Today is his first visit after he received new CPAP equipment. The patient is able to use new machine every night. No problems. He likes it. He only preferred to use the heated tube. Presently, he is using regular tube. I checked the CPAP unit. CPAP pressure is 9 cm of water. Usage is 30 out of 30 nights for more than 4 hours with average usage is 7.7 hours per night. Leak is 24 L/minute. Apnea-hypopnea index is 1.1, which absolutely perfect. [place] Sleepiness Scale today is 3. MEDICATIONS: Amlodipine 5 mg twice a day, pravastatin 80 mg once a day, trazodone 100 mg once a day, omeprazole 40 mg once a day in the morning, hydrochlorothiazide 25 mg once a day in the morning, aspirin 81 mg once a day in the morning, cetirizine 10 mg once a day in the morning. PHYSICAL EXAMINATION: GENERAL: Patient in no distress. VITAL SIGNS: BP 124/70, HR 65, RR 12, weight 117.8 pounds, temperature 98.1, oxygen saturation at room air 93%. HEENT: PERRLA, EOMI. Oropharynx extremely low position of soft palate. Mallampati 4. NECK: Supple, no JVD. Thyroid is not palpable. LUNGS: Clear to percussion and to auscultation. Good air exchange. No wheezing or rhonchi. HEART: S1, S2 regular. No murmurs, gallops, or rubs. ABDOMEN: Soft and nontender. Bowel sounds are present. No organomegaly appreciated. EXTREMITIES: No clubbing or cyanosis. PROGRESSIVE ASSEMBLER AND FITTER: Awake, alert, and oriented X3. Cranial nerves 2 to 7 intact. There is no fasciculation or atrophy. noted. No focal deficits observed. IMPRESSION: 1. Obstructive sleep apnea-hypopnea syndrome. Patient demonstrated 100% compliance with new CPAP unit, benefitting from treatment. 2. History of chronic obstructive pulmonary disease. 3. Hypertension. 4. Hyperlipidemia. 5. Back problems. 6. Status post right hip replacement. 7. Status post bilateral cataract surgery. 8. Status post right shoulder repair. PLAN: 1. Patient will continue to use PAP equipment every night for the whole night. 2. Sleep hygiene with regular time in bed for at least 7-1/2 to 8 hours. 3. Precautions related to driving. No driving if feeling sleepiness. 4. I will maintain all necessary prescription for PAP supplies including mask, tube, filters. 5. Watching weight. 6. Follow-up visit in 6 months or earlier if patient has any problems. Thank you very much for allowing me to participate in management of your patient. Sincerely, Lg Grajeda MD, PhD, FAASM Diplomat of [employer] Board of Internal Medicine Sample Paster of [facility] [place] MMODL / IJN: [id number] /
== END | disposition home or self-care (01) ==
LOC: SLEEP 13:24
PROVIDERS: ATTEND Internal Medicine
DX: G47.33 Obstructive sleep apnea (adult) (pediatric) (principal); I10 Essential (primary) hypertension; E78.5 Hyperlipidemia, unspecified; M43.9 Deforming dorsopathy, unspecified; Z99.89 Dependence on other enabling machines and devices; Z79.82 Long term (current) use of aspirin; Z79.899 Other long term (current) drug therapy; Z96.641 Presence of right artificial hip joint; Z98.42 Cataract extraction status, left eye; Z98.41 Cataract extraction status, right eye; Z98.890 Other specified postprocedural states

== ENCOUNTER → 2021-02-28 | Outpatient (CLI) | payer MEDICARE ==
--- NOTE | 2021-03-01 07:05 | CT ---
EXAMINATION TYPE: CT chest wo con DATE OF EXAM: 02/28/2021 COMPARISON: CT chest January 24, 2020 and older study February 11, 2019 HISTORY: Pleural scarring. Prior abnormal CT. CT DLP: 264.7 mGycm. Automated Exposure Control for Dose Reduction was Utilized. TECHNIQUE: CT scan of the thorax is performed without IV contrast. FINDINGS: LUNGS: Stable 4 mm pulmonary nodule along the right interlobar fissure axial image 31 presumed benign . Additional 4-5 mm pulmonary nodule axial image 28 in the superior segment of the right lower lobe r emains stable. Mild bibasilar linear scarring and/or atelectasis. No new focal groundglass opacity or consolidation seen. There is no pleural effusion or pneumothorax seen. The tracheobronchial tree remains patent. MEDIASTINUM: Lack of IV contrast is noted to limit evaluation for mediastinal and especially hilar ad enopathy. There are no definitive new greater than 1 cm hilar or mediastinal lymph nodes. Tiny perica rdial effusion is stable. Coronary artery calcifications redemonstrated. OTHER: 2 small thin-walled cysts scattered throughout the liver are redemonstrated. Slight scoliotic curvature with multilevel spurring of the spine is redemonstrated. IMPRESSION: Overall stable findings. No new or enlarging nodules or masses. No acute pulmonary proces s.
== END | disposition home or self-care (01) ==
LOC: RADCTMAIN 17:20
PROVIDERS: ATTEND Family Medicine
DX: J98.4 Other disorders of lung (principal)
CPT/HCPCS: 71250

== ENCOUNTER → 2021-03-01 | Outpatient (CLI) | payer MEDICARE ==
[2021-03-01 07:49] LABS: Appearance,Urine Clear (Clear); Bilirubin,Urine Negative (Negative); Blood,Urine Negative (Negative); Color,Urine Yellow; Glucose,Urine (UA) Negative (Negative); Ketones,Urine Negative (Negative); Leukocyte Esterase,Urine Negative (Negative); Nitrite,Urine Negative (Negative); PH, Urine 5.5 (5.0-8.0); Protein,Urine Trace (Negative); Specific Gravity,Urine 1.021 (1.001-1.035); Urobilinogen,Urine <2.0 mg/dL (<2.0)
[2021-03-01 12:10] LABS: Basophils # (A) 0.04 X 10*3/uL (0.00-0.10); Basophils % (A) 0.5 %; Eosinophils # (A) 0.14 X 10*3/uL (0.04-0.35); Eosinophils % (A) 1.7 %; HCT 45.6 % (39.6-50.0); HGB 14.6 g/dL (13.0-17.0); Lymphocytes # (A) 1.59 X 10*3/uL (0.90-5.00); Lymphocytes % (A) 19.7 %; MCH 30.1 pg (27.0-32.0); Mean Platelet Volume 10.2 fL (9.5-12.2); Monocytes # (A) 0.62 X 10*3/uL (0.20-1.00); Monocytes % (A) 7.7 %; Neutrophils # (A) 5.64 X 10*3/uL (1.80-7.70); Platelet Count 247 X 10*3/uL (140-440); RBC 4.85 X 10*6/uL (4.40-5.60); RDW 13.8 % (11.5-14.5); WBC 8.06 X 10*3/uL (4.50-10.00)
[2021-03-01 12:25] LABS: African American GFR (CKD) 76.8 (60.0-200.0); Albumin 4.4 g/dL (3.80-4.90); Albumin/Globulin Ratio 1.69 (1.60-3.17); Anion Gap 10.3 mmol/L (4.00-12.00); BUN/Creat Ratio 24.55 Ratio (12.00-20.00); Calcium 9.8 mg/dL (8.7-10.3); Carbon Dioxide 25.7 mmol/L (21.6-31.8); Chol/HDL Ratio 2.76; Globulin 2.6 g/dL (1.6-3.3); LDL Cholesterol,Calculated 99.2 mg/dL (0.0-131.0); Non-African American GFR(CKD) 66.2 (60.0-200.0); Total Bilirubin 0.9 mg/dL (0.2-1.2); VLDL Calculation 18.8 mg/dL (5.00-40.00)
[2021-03-01 12:33] LABS: Prostate Specific Antigen 0.8 ng/mL (0.0-6.5)
== END | disposition home or self-care (01) ==
LOC: LABWHC1 07:07
PROVIDERS: ATTEND Nurse Practitioner Adult Health
DX: Z00.01 Encounter for general adult medical examination with abnormal findings (principal); I10 Essential (primary) hypertension; E78.2 Mixed hyperlipidemia; N40.0 Benign prostatic hyperplasia without lower urinary tract symptoms; E78.00 Pure hypercholesterolemia, unspecified; Z11.59 Encounter for screening for other viral diseases; Z12.5 Encounter for screening for malignant neoplasm of prostate
CPT/HCPCS: 36415; 80053; 80061; 81003; 84153; 84443; 85025

== ENCOUNTER → 2021-09-05 | Outpatient (CLI) | payer MEDICARE ==
--- NOTE | 2021-09-06 11:10 | SFUN ---
SLEEP CENTER FOLLOW UP NOTE DATE OF SERVICE: 09/05/2021 This 75-year-old gentleman has been followed in Sleep Center for treatment of obstructive sleep apnea-hypopnea syndrome. The patient is successfully continuing to use his CPAP equipment. No problems with CPAP. He is getting his supplies on time. [place] Sleepiness Scale today is 3, which is totally normal. I checked his CPAP unit. CPAP pressure is 9 cm of water. Usage is 30/30 nights for more than 4 hours, average 8 hours per night. Leak is 22 L/minute, which is borderline. Apnea-hypopnea index is 3.8, which is normal. MEDICATIONS: 1. Amlodipine 5 mg twice a day. 2. Pravastatin 80 mg once a day. 3. Cetirizine once a day. 4. Omeprazole 40 mg once a day. 5. Hydrochlorothiazide 25 mg once a day. 6. Aspirin 81 mg once a day. 7. Trazodone 100 mg as needed. PHYSICAL EXAMINATION: GENERAL: Pleasant patient in no distress. VITAL SIGNS: BP 140/71, HR 58, RR 15, height 5 feet 8 inches, weight 174.0 pounds, body mass index 26.4, temperature 97.7, oxygen saturation at room air 95%. HEENT: PERRLA, EOMI, evaluation of oropharynx showed tongue protrudes midline. Extremely low position of soft palate; Mallampati IV. NECK: Supple, no JVD. Thyroid is not palpable. LUNGS: Clear to percussion and to auscultation. Good air exchange. No wheezing or rhonchi. HEART: S1, S2 regular. No murmurs, gallops, or rubs. ABDOMEN: Soft and nontender. Bowel sounds are present. No organomegaly appreciated. EXTREMITIES: No clubbing or cyanosis. DUPLICATOR PUNCH OPERATOR: Awake, alert, and oriented X3. Cranial nerves 2 to 7 intact. There is no fasciculation or atrophy. noted. No focal deficits observed. IMPRESSION: 1. Obstructive sleep apnea-hypopnea syndrome. Patient demonstrated great compliance with treatment, benefitting from treatment. 2. Hypertension. 3. History of chronic obstructive pulmonary disease. 4. Hyperlipidemia. 5. Back problems. 6. Status post right hip replacement. 7. Status post right shoulder repair. 8. Status post bilateral cataract surgery. PLAN: 1. Patient will continue to use PAP equipment every night for the whole night. 2. Sleep hygiene with regular time in bed for at least 7-1/2 to 8 hours. 3. Precautions related to driving. No driving if feeling sleepiness. 4. I will maintain all necessary prescription for PAP supplies including mask, tube, filters. 5. Watching weight. 6. Follow-up visit in 6 months or earlier if patient has any problems. Thank you very much for allowing me to participate in the management of your patient. Sincerely, Lg Grajeda MD, PhD, FAASM Diplomat of [employer] [employer] Sleep Medicine Board of [place] [employer] of [employer] Medicine Cardiovascular Radiologic Technologist of [facility] [place] MMODL / MARGEN: [id number] /
== END ==
LOC: SLEEP 16:13
PROVIDERS: ATTEND Internal Medicine
DX: G47.33 Obstructive sleep apnea (adult) (pediatric) (principal); I10 Essential (primary) hypertension; E78.5 Hyperlipidemia, unspecified; J44.9 Chronic obstructive pulmonary disease, unspecified; M53.80 Other specified dorsopathies, site unspecified; Z96.641 Presence of right artificial hip joint; Z98.890 Other specified postprocedural states; Z98.41 Cataract extraction status, right eye; Z98.42 Cataract extraction status, left eye; Z99.89 Dependence on other enabling machines and devices; Z79.899 Other long term (current) drug therapy; Z87.891 Personal history of nicotine dependence; Z91.030 Bee allergy status; Z91.041 Radiographic dye allergy status; Z91.013 Allergy to seafood

== ENCOUNTER → 2021-12-18 | Outpatient (CLI) | payer MEDICARE ==
[2021-12-18 15:20] LABS: ALT 18 U/L (10-49); AST 19 U/L (14-35); Chol/HDL Ratio 3.24 Ratio; LDL Cholesterol,Calculated 103.8 mg/dL (0.0-131.0)
== END | disposition home or self-care (01) ==
LOC: LABWHC1 09:25
PROVIDERS: ATTEND Nurse Practitioner Adult Health
DX: E78.2 Mixed hyperlipidemia (principal)
CPT/HCPCS: 36415; 80061; 84450; 84460

== ENCOUNTER → 2022-04-09 | Outpatient (CLI) | payer MEDICARE ==
--- NOTE | 2022-04-10 14:47 | SFUN ---
SLEEP CENTER FOLLOW UP NOTE DATE OF SERVICE: 04/09/2022 This 76-year-old gentleman has been followed in Sleep Center for treatment of obstructive sleep apnea-hypopnea syndrome. The patient continues to use his CPAP equipment every night for the whole night, getting his CPAP supplies on time. [place] Sleepiness Scale today is 3, which is perfect. I checked his CPAP unit. Pressure is 9 cm of water. Usage is 30/30 nights for more than 4 hours, average 7.9 hours per night; great compliance. Leak is 10 L/minute, normal. Apnea-hypopnea index is 5.7, slightly increased. MEDICATIONS: Amlodipine 5 mg twice a day, trazodone 100 mg once a day, omeprazole 40 mg once a day, hydrochlorothiazide 25 mg once a day, atorvastatin once a day. PHYSICAL EXAMINATION: GENERAL: Pleasant patient in no distress. VITAL SIGNS: BP 127/69, HR 67, RR 16, weight 174.8 pounds, which is about the same as during previous visit. Temperature 97.6, oxygen saturation at room air 94%. HEENT: PERRLA, EOMI, evaluation of oropharynx showed tongue protrudes midline. Extremely low position of soft palate; Mallampati IV. NECK: Supple, no JVD. Thyroid is not palpable. LUNGS: Clear to percussion and to auscultation. Good air exchange. No wheezing or rhonchi. HEART: S1, S2 regular. No murmurs, gallops, or rubs. ABDOMEN: Soft and nontender. Bowel sounds are present. No organomegaly appreciated. EXTREMITIES: No clubbing or cyanosis. STAND IN: Awake, alert, and oriented X3. Cranial nerves 2 to 7 intact. There is no fasciculation or atrophy. noted. No focal deficits observed. IMPRESSION: 1. Obstructive sleep apnea-hypopnea syndrome. The patient demonstrated 100% compliance with treatment, benefitting from treatment. Apnea-hypopnea index is slightly increased; it is 5.7 today. 2. Hypertension. 3. History of chronic obstructive pulmonary disease. 4. Hyperlipidemia. 5. Back problems. 6. Status post right hip replacement. 7. Status post right shoulder repair. 8. Status post bilateral cataract surgery. PLAN: 1. I changed the regimen in CPAP unit to automatic, range of the pressure 5-11. 2. Patient will continue to use PAP equipment every night for the whole night. 3. Sleep hygiene with regular time in bed for at least 7-1/2 to 8 hours. 4. Precautions related to driving. No driving if feeling sleepiness. 5. I will maintain all necessary prescription for PAP supplies including mask, tube, filters. 6. Watching weight. 7. Follow-up visit in 6 months or earlier if patient has any problems. Thank you very much for allowing me to participate in the management of your patient. Sincerely, Lg Grajeda MD, PhD, FAASM Diplomat of [employer]ties Sleep Medicine Board of [employer] Board of Internal Medicine Brazing Furnace Operator of [facility] [place] MMODL / MARGEN: [id number] /
== END ==
LOC: SLEEP 13:45
PROVIDERS: ATTEND Internal Medicine
DX: G47.33 Obstructive sleep apnea (adult) (pediatric) (principal); I10 Essential (primary) hypertension; J44.9 Chronic obstructive pulmonary disease, unspecified; E78.5 Hyperlipidemia, unspecified; M53.80 Other specified dorsopathies, site unspecified; Z96.641 Presence of right artificial hip joint; Z98.890 Other specified postprocedural states; Z98.41 Cataract extraction status, right eye; Z98.42 Cataract extraction status, left eye; Z79.899 Other long term (current) drug therapy; Z99.89 Dependence on other enabling machines and devices; Z91.030 Bee allergy status; Z91.041 Radiographic dye allergy status; Z91.013 Allergy to seafood; Z87.891 Personal history of nicotine dependence

== ENCOUNTER → 2022-11-19 | Outpatient (CLI) | payer MEDICARE ==
--- NOTE | 2022-11-19 11:21 | P.PN ---
Subjective DATE: 11/19/2022 FOLLOW UP VISIT. Patient with obstructive sleep apnea hypopnea syndrome return to sleep center for follow-up visit. Information from previous visit have been reviewed. Patient is using PAP equipment every night for the whole night, getting PAP supplies in time. The patient does not have significant problems with the mask, PAP unit and humidification. [place] sleepiness scale is 3, which is normal. I checked information from PAP unit. PAP unit pressure 5-11, average 9.7 cm H2O. Usage is 100 % for more then 4 hours, average 7.8 hours per night. Leak is 8 l/m, which is in acceptable range. Apnea Hypopnea Index is 5.2, which is slightly increased, but less than during previous visit when it was 5.7. During previous visit I increased maximal pressure to 11 from 9. MEDICATIONS:1. Amlodipine 5 mg twice a day 2. Atorvastatin once a day 3. Omeprazole 40 mg once a day 4. Hydrochlorothiazide 25 mg once a day 5. Trazodone 100 mg once a day 6. Aspirin 81 mg once a day During physical exam: GENERAL: A pleasant patient without any distress. VITAL SIGNS: BP 133/76, HR 58, RR 16 , weight was 76.2, temperature 97.6, oxygen saturation at room air 93 % . HEENT: PERRLA, EOMI.low position of soft palate, Mallapati 4 . NECK: Supple. No JVD. LUNGS: Clear to percussion and to auscultation. Good air exchange. No wheezing or rhonchi. HEART: S1, S2 regular. ABDOMEN: Soft and nontender.[] EXTREMITIES: No clubbing or cyanosis. SPRING WINDER: Awake, alert, and oriented x3. No focal deficit. Impressions: 1. Obstructive sleep apnea-hypopnea syndrome. Patient demonstrated great compliance with treatment, benefiting from treatment. 2. History of COPD. 3. Hypertension. 4. Hyperlipidemia. 5. Back problems. 6. Status post a right hip replacement. 7. Status post right shoulder repair. 8. Status post bilateral cataract surgery. Plan: 1. Continue using PAP equipment every night for the whole night. 2. To change air filter at least 1-2 times per month. 3. PAP unit should stay lower then position of the head. 4. Advised patient to remove all remaining water from humidifier canister daily and make it dry after each usage. Refill canister with fresh distilled water before each usage. 5. Sleep hygiene with regular time in bed for at least 8 hours. 6. Precautions related to driving. No driving if feel any sleepiness. 7. I will maintain prescription for PAP supplies including mask, tube, filters. 8. Follow up visit in 6 months or earlier if patient has any problems. 9. Watching weight. Thank you very much for allowing me to participate in the management of your patient. Lg Grajeda MD, PhD, FAASM. Diplomat of [place] Board [employer] Sleep Medicine, Sleep Medicine Board by [place] [employer] Medicine Steel Estimator of [facility] [place]
== END ==
LOC: SLEEP 09:54
PROVIDERS: ATTEND Internal Medicine
DX: G47.33 Obstructive sleep apnea (adult) (pediatric) (principal); I10 Essential (primary) hypertension; E78.5 Hyperlipidemia, unspecified; M54.9 Dorsalgia, unspecified; Z87.09 Personal history of other diseases of the respiratory system; Z96.641 Presence of right artificial hip joint; Z47.31 Aftercare following explantation of shoulder joint prosthesis; Z98.49 Cataract extraction status, unspecified eye; Z99.89 Dependence on other enabling machines and devices; Z79.82 Long term (current) use of aspirin; Z87.891 Personal history of nicotine dependence; Z91.030 Bee allergy status; Z91.041 Radiographic dye allergy status; Z91.013 Allergy to seafood
CPT/HCPCS: 99212

== ENCOUNTER → 2022-12-08 | Outpatient (CLI) | payer MEDICARE ==
--- NOTE | 2022-12-10 12:02 | MR ---
EXAMINATION TYPE: MR lumbar spine wo con DATE OF EXAM: 12/08/2022 8:34 AM COMPARISON: Lumbar spine radiograph 08/29/2013. CLINICAL INDICATION:Male, 77 years old with history of M54.16 radiculopathy lumbar region; TECHNIQUE: Multi planar, multi sequence imaging was performed utilizing: T1-weighted, T2-weighted, a nd turbo inversion recovery imaging of the lumbar spine. IV Contrast: None. FINDINGS: Alignment: The lumbar vertebral bodies have preserved heights. Grade 1 anterolisthesis of L4 and L5 Cord: The conus medullaris and the distal spinal cord appear unremarkable with regards to their signa l intensity and morphology. Bones/Discs: Scattered Modic endplate changes are present. Multilevel degenerative disc disease is no naomie and most pronounced at the L4-L5. Multilevel disc desiccation is present. T12-L1: No evidence of significant spinal canal stenosis or neural foraminal stenosis. L1-L2: No evidence of significant spinal canal stenosis or neural foraminal stenosis. L2-L3: No evidence of significant spinal canal stenosis or neural foraminal stenosis. L3-L4: No evidence of significant spinal canal stenosis or neural foraminal stenosis. L4-L5: Disc uncovering from grade 1 anterolisthesis with disc bulge and facet joint arthropathy resul t in severe spinal canal and mild bilateral neural foraminal stenosis. Right perineural cysts measuri ng up to 8 x 7 mm. Trace bilateral facet joint effusions. L5-S1: The disc is rounded posterior morphology without significant spinal canal stenosis. Facet join t arthropathy with mild neural foraminal stenosis. Trace left facet joint effusion. IMPRESSION: Grade 1 anterolisthesis at L4-L5 with severe spinal canal stenosis and mild bilateral significant zita ral foraminal stenosis.
== END | disposition home or self-care (01) ==
LOC: RADMRIMAIN 07:37
PROVIDERS: ATTEND Physician Assistant
DX: M43.16 Spondylolisthesis, lumbar region (principal); M48.061 Spinal stenosis, lumbar region without neurogenic claudication; M99.73 Connective tissue and disc stenosis of intervertebral foramina of lumbar region
CPT/HCPCS: 72148

== ENCOUNTER → 2022-12-12 | Outpatient (CLI) | payer MEDICARE ==
[2022-12-12 16:05] LABS: ALT 26 U/L (10-49); AST 22 U/L (14-35); Chol/HDL Ratio 3.04 Ratio; LDL Cholesterol,Calculated 92.4 mg/dL (0.0-131.0)
== END | disposition home or self-care (01) ==
LOC: LABWHC1 07:36
PROVIDERS: ATTEND Internal Medicine Interventional Cardiology
DX: E78.2 Mixed hyperlipidemia (principal)
CPT/HCPCS: 36415; 80061; 84450; 84460

== ENCOUNTER → 2023-06-10 | Outpatient (CLI) | payer MEDICARE ==
--- NOTE | 2023-06-10 10:34 | P.PN ---
Subjective DATE: 06/10/2023 FOLLOW UP VISIT. Patient with obstructive sleep apnea hypopnea syndrome return to sleep center for follow-up visit. Information from previous visit have been reviewed. Patient is using PAP equipment every night for the whole night, getting PAP supplies in time. The patient does not have significant problems with the mask, PAP unit and humidification. [place] sleepiness scale is 3, which is normal. I checked information from PAP unit. PAP unit pressure 5-12, average 10 cm H2O. Usage is 100 % for more then 4 hours, average 7.6 hours per night. Leak is 10 l/m, which is in acceptable range. Apnea Hypopnea Index is 5.4, which is normal. MEDICATIONS:1. Atorvastatin 2. Amlodipine 5 mg twice a day 3. Hydrochlorothiazide 25 mg once a day 4. Trazodone 100 mg once a day 5. Farxiga 6. Aspirin 81 mg once a day During physical exam: GENERAL: A pleasant patient without any distress. VITAL SIGNS: BP 129/69, HR 56, RR 14, weight 173.8, temperature 98.2, oxygen saturation at room air 94 % . HEENT: PERRLA, EOMI.low position of soft palate, Mallapati 4 . NECK: Supple. No JVD. LUNGS: Clear to percussion and to auscultation. Good air exchange. No wheezing or rhonchi. HEART: S1, S2 regular. ABDOMEN: Soft and nontender.[] EXTREMITIES: No clubbing or cyanosis. SURGICAL PRODUCT SALES CONSULTANT: Awake, alert, and oriented x3. No focal deficit. Impressions: 1. Obstructive sleep apnea-hypopnea syndrome. Patient demonstrated great compliance with treatment, benefiting from treatment. 2. Status post recent back surgery for fusion on the level L4-L5. 3. Hypertension. 4. History of COPD. 5. Hyperlipidemia. 6. Back problems. 7. Status post right hip replacement. 8. Status post right shoulder repair. 9. Status post bilateral cataract surgery. Plan: 1. Continue using PAP equipment every night for the whole night. 2. To change air filter at least 1-2 times per month. 3. PAP unit should stay lower then position of the head. 4. Advised patient to remove all remaining water from humidifier canister daily and make it dry after each usage. Refill canister with fresh distilled water before each usage. 5. Sleep hygiene with regular time in bed for at least 8 hours. 6. Precautions related to driving. No driving if feel any sleepiness. 7. I will maintain prescription for PAP supplies including mask, tube, filters. 8. Watching weight. 9. Follow up visit in 6 months or earlier if patient has any problems. Thank you very much for allowing me to participate in the management of your patient. Lg Grajeda MD, PhD, FAASM. Diplomat of [place] [employer] Sleep Medicine, Sleep Medicine Board by [place] [employer] Internal Medicine Assistant Nurse Manager of [facility] [place]
== END ==
LOC: 3 N SLEEP 09:58
PROVIDERS: ATTEND Internal Medicine
DX: G47.33 Obstructive sleep apnea (adult) (pediatric) (principal); I10 Essential (primary) hypertension; J44.9 Chronic obstructive pulmonary disease, unspecified; E78.5 Hyperlipidemia, unspecified; Z96.641 Presence of right artificial hip joint; Z79.899 Other long term (current) drug therapy; Z98.890 Other specified postprocedural states; Z99.89 Dependence on other enabling machines and devices; Z91.030 Bee allergy status; Z91.013 Allergy to seafood; Z91.041 Radiographic dye allergy status; Z79.51 Long term (current) use of inhaled steroids; Z87.891 Personal history of nicotine dependence
CPT/HCPCS: 99212

== ENCOUNTER → 2023-12-17 | Outpatient (CLI) | payer MEDICARE ==
[2023-12-17 15:30] LABS: ALT 22 U/L (10-49); AST 20 U/L (14-35); Albumin 4.3 g/dL (3.8-4.9); Albumin/Globulin Ratio 1.59 Ratio (1.60-3.17); Alkaline Phosphatase 66 U/L (41-126); BUN/Creat Ratio 20.42 Ratio (12.00-20.00); Blood Urea Nitrogen 24.5 mg/dL (9.0-27.0); Calcium 9.8 mg/dL (8.7-10.3); Carbon Dioxide 27.3 mmol/L (21.6-31.8); Chloride 105 mmol/L (96-109); Chol/HDL Ratio 2.77 Ratio; Globulin 2.7 g/dL (1.6-3.3); Glucose 101 mg/dL (70-110); LDL Cholesterol,Calculated 80.3 mg/dL (0.0-131.0); Potassium 4.2 mmol/L (3.5-5.5); Sodium 142 mmol/L (135-145); Total Bilirubin 0.6 mg/dL (0.3-1.2); VLDL Calculation 12.32 mg/dL (5.00-40.00)
== END | disposition home or self-care (01) ==
LOC: LABWHC1 07:19
PROVIDERS: ATTEND Nurse Practitioner Adult Health
DX: I10 Essential (primary) hypertension (principal); E78.2 Mixed hyperlipidemia
CPT/HCPCS: 36415; 80053; 80061

== ENCOUNTER → 2024-04-13 | Outpatient (CLI) | payer MEDICARE ==
--- NOTE | 2024-04-17 15:47 | US ---
EXAMINATION TYPE: US abdomen complete DATE OF EXAM: 04/13/2024 COMPARISON: NONE CLINICAL INDICATION: Male, 78 years old with history of R10.9 UNSPECIFIED ABDOMINAL PAIN; abd pain, g eneral unwellness TECHNIQUE: Multiple sonographic images of the abdomen are obtained. FINDINGS: EXAM MEASUREMENTS: Liver Length: 14.7 cm Gallbladder Wall: 0.2 cm CBD: 0.3 cm Spleen: 9.0 cm Right Kidney: 10.1x5.8x5.9 cm Left Kidney: 10.4x5.7x5.4 cm MULTIPLE NEEDLE STITCHER NOTES: Pancreas: Tail obscured by overlying bowel gas Liver: several cystic areas left lobe: 1.5x1.6x1.6cm right lobe: 1.2x1.3x1.3cm Gallbladder: 0.4x0.3x0.3cm possible polyp Evidence for sonographic Stewart's sign: No CBD: wnl Spleen: wnl Right Kidney: 2.1x2.0x1.8cm cystic are mid/lat pole Left Kidney: mild hydro Upper IVC: wnl Abd Aorta: wnl, as best visualized exam limited by bowel gas and tight rib spaces The liver is homogenous. Few anechoic simple cysts within the liver. These demonstrate thin wall with out internal color flow. Largest within the right hepatic lobe measures up to 1.3 cm and largest in t he left hepatic lobe measures up to 1.6 cm. The intrahepatic portion of the IVC and proximal abdomina l aorta are within normal limits. There is a suggested 0.4 cm polyp within the gallbladder. No shado wing identified. No internal color flow visualized. No wall thickening or surrounding fluid. Common b ile duct is unremarkable. The visualized portions of the pancreas are homogenous. The spleen is unr emarkable. Simple thin-walled anechoic cyst within the mid/lateral pole of the right kidney. No hydro nephrosis of the right kidney. No nephrolithiasis of either kidney. Mild left hydronephrosis versus p arapelvic cysts. IMPRESSION: 1. Mild left hydronephrosis versus parapelvic cysts. This can be further evaluated with CT abdomen pe lvis with IV contrast as clinically indicated. 2. Suggested 0.4 cm gallbladder polyp. Consider follow-up ultrasound in 6 months is recommended. 3. Simple hepatic cysts.
== END | disposition home or self-care (01) ==
LOC: RADUSWWP 08:31
PROVIDERS: ATTEND Family Medicine
DX: K76.89 Other specified diseases of liver (principal); N13.30 Unspecified hydronephrosis
CPT/HCPCS: 76700

== ENCOUNTER → 2024-05-05 | Outpatient (CLI) | payer MEDICARE ==
[2024-05-05 07:41] LABS: African American GFR (CKD) 70 (>60 ml/min/1.73 sqM); Blood Urea Nitrogen 35 mg/dL (9-20); Non-African American GFR(CKD) 60 (>60 ml/min/1.73 sqM)
--- NOTE | 2024-05-05 13:31 | CT ---
EXAMINATION TYPE: CT abdomen pelvis w con DATE OF EXAM: 05/05/2024 COMPARISON: 01/25/2013 HISTORY: abd pain CT DLP: 585.6 mGycm Automated exposure control for dose reduction was used. TECHNIQUE: Helical acquisition of images was performed from the lung bases through the pelvis. CONTRAST: Performed with Oral Contrast and with IV Contrast, patient injected with 100 mL of Isovue 300. FINDINGS: The lung bases are clear. The gallbladder is normal without distention, wall thickening, pericholecystic fluid or gallstones. T here is no biliary ductal dilatation. There is no focal mass or organomegaly involving the liver, pancreas, spleen or adrenal glands. There are stable hepatic cysts. There is no solid renal mass or hydronephrosis and there is homogeneous contrast enhancement of the r enal parenchyma. There is a small simple cortical cyst in the right kidney and parapelvic cysts of th e left kidney. The caliber the abdominal aorta is normal is no retroperitoneal adenopathy or hemorrhage. The bowel loops are normal in caliber and there is no evidence of dilatation or obstruction. No infla mmatory changes are identified in the bowel wall or mesentery. There is no free intraperitoneal air or fluid. No pelvic mass, free fluid, abscess or adenopathy. There is stable moderate prostatic hypertrophy There is low lumbar spine fusion and right hip prosthesis. No focal osseous abnormalities. IMPRESSION: 1. No acute changes within the abdomen. 2. Moderate prostatic hypertrophy. 3. Bilateral renal cysts as described above. 4. No significant interval change compared to the study of 01/26/2013
== END | disposition home or self-care (01) ==
LOC: RADCTMAIN 06:49
PROVIDERS: ATTEND Family Medicine
DX: N40.0 Benign prostatic hyperplasia without lower urinary tract symptoms (principal); N28.1 Cyst of kidney, acquired
CPT/HCPCS: 82565; 84520; 74177; 36415; Q9967

== ENCOUNTER → 2024-05-24 | Outpatient (CLI) | payer MEDICARE ==
[2024-05-24 12:52] LABS: ALT 21 U/L (10-49); AST 15 U/L (14-35); Albumin 4.4 g/dL (3.8-4.9); Albumin/Globulin Ratio 1.76 Ratio (1.60-3.17); Alkaline Phosphatase 62 U/L (41-126); Blood Urea Nitrogen 24.3 mg/dL (9.0-27.0); Calcium 9.6 mg/dL (8.7-10.3); Carbon Dioxide 23.4 mmol/L (21.6-31.8); Chloride 104 mmol/L (96-109); Chol/HDL Ratio 2.27 Ratio; Globulin 2.5 g/dL (1.6-3.3); Glucose 121 mg/dL (70-110); LDL Cholesterol,Calculated 80.2 mg/dL (0.0-131.0); Potassium 4.2 mmol/L (3.5-5.5); Sodium 141 mmol/L (135-145); Total Bilirubin 0.6 mg/dL (0.3-1.2); Total Protein 6.9 g/dL (6.2-8.2); VLDL Calculation 15.04 mg/dL (5.00-40.00)
== END | disposition home or self-care (01) ==
LOC: LABWHC1 07:13
PROVIDERS: ATTEND Internal Medicine Interventional Cardiology
DX: E78.2 Mixed hyperlipidemia (principal)
CPT/HCPCS: 36415; 80053; 80061

== ENCOUNTER → 2024-05-30 | Outpatient (CLI) | payer MEDICARE ==
--- NOTE | 2024-05-30 15:15 | FL ---
EXAMINATION TYPE: FL barium swallow w video DATE OF EXAM: 05/30/2024 CLINICAL HISTORY: 78-year-old male R13.10, unspecified dysphasia, sensation of food sticking in the t hroat. TECHNIQUE: Deglutition study is performed utilizing thin liquid barium, barium thick pudding, and ba rium coated cracker. COMPARISON: None. Total fluoroscopy time 1 minute 24 seconds. Total images: None. Real-time fluoroscopy support was provided to speech pathology. Total DAP: 20 mGycm2. FINDINGS: The oral and pharyngeal phases show satisfactory initiation and propagation with all modalities teste d. Normal mastication is seen with solid modalities tested. There is no evidence of penetration or aspiration with any modality tested. There is anterior endplate spondylosis which causes mild impres sions on the back wall of the cervical esophagus without obstruction. No significant pharyngeal resid ue was appreciated. IMPRESSION: Some mild impressions along the back wall of the cervical esophagus due to spurring from the cervical spine. Otherwise, normal dynamic swallow study. Please refer to speech therapist notes for further details if necessary.
== END | disposition home or self-care (01) ==
LOC: RADFLMAIN 10:56
PROVIDERS: ATTEND Otolaryngology
DX: R13.10 Dysphagia, unspecified (principal)
CPT/HCPCS: 74230

== ENCOUNTER → 2024-06-01 | Outpatient (CLI) | payer MEDICARE ==
[2024-06-01 10:26] VITALS: BP 134/70; PULSE 58; RESP 16; TEMP 98
--- NOTE | 2024-06-01 11:26 | P.PROGSL ---
Subjective DATE: 06/01/2024 FOLLOW UP VISIT. Patient with obstructive sleep apnea hypopnea syndrome return to sleep center for follow-up visit. Information from previous visit have been reviewed. Patient is using PAP equipment every night for the whole night, getting PAP supplies in time. The patient does not have significant problems with the mask, PAP unit and humidification. [place] sleepiness scale is 4, which is normal. I checked information from PAP unit. PAP unit pressure 5-12, average 10.1 cm H2O. Usage is 100% for more then 4 hours, average 7.4 hours per night. Leak is 12 l/m, which is in acceptable range. Apnea Hypopnea Index is 3.8, which is normal. MEDICATIONS: Please see below During physical exam: GENERAL: A pleasant patient without any distress. VITAL SIGNS: Please see below, weight 164 pounds. HEENT: PERRLA, EOMI.low position of soft palate, Mallapati 4 . NECK: Supple. No JVD. LUNGS: Clear to percussion and to auscultation. Good air exchange. No wheezing or rhonchi. HEART: S1, S2 regular. ABDOMEN: Soft and nontender.[] EXTREMITIES: No clubbing or cyanosis. SOUR BLEACHING PLEATER: Awake, alert, and oriented x3. No focal deficit. Impressions: 1. Obstructive sleep apnea-hypopnea syndrome. Patient demonstrated great compliance with treatment, benefiting from treatment. 2. Hypertension. 3. Status post back surgery with fusion at the level of L4-L5 in 2022. 4. History of COPD. 5. Hyperlipidemia. 6. Status post bilateral cataract surgery. 7. Status post right hip replacement. 8. Status post right shoulder repair. Plan: 1. Continue using PAP equipment every night for the whole night. 2. To change air filter at least 1-2 times per month. 3. PAP unit should stay lower then position of the head. 4. Advised patient to remove all remaining water from humidifier canister daily and make it dry after each usage. Refill canister with fresh distilled water before each usage. 5. Sleep hygiene with regular time in bed for at least 8 hours. 6. Precautions related to driving. No driving if feel any sleepiness. 7. I will maintain prescription for PAP supplies including mask, tube, filters. 8. Follow up visit in 6 months or earlier if patient has any problems. 9. Watching weight. Thank you very much for allowing me to participate in the management of your patient. Lg Grajeda MD, PhD, FAASM. Diplomat of [place] [employer], Sleep Medicine Board by [place] [employer] Vendor Management Specialist of [facility] [place] Objective - Vital Signs Vital Signs: Vital Signs Temp 98 F 06/01/24 10:25 Pulse 58 L 06/01/24 10:25 Resp 16 06/01/24 10:25 BP 134/70 06/01/24 10:25 Pulse Ox 94 L 06/01/24 10:25 FiO2 Intake & Output 05/31/24 06/01/24 06/01/24 18:59 06:59 18:59 Weight 74.389 kg Home Medications: Home Medications Medication Instructions Recorded Confirmed Type Cetirizine HCl [Zyrtec] 10 mg PO DAILY 01/10/19 06/01/24 History Pravastatin Sodium [Pravachol] 80 mg PO HS 01/10/19 05/30/20 History Albuterol Inhaler [Ventolin Hfa 1 - 2 puff INHALATION RT-Q6H PRN 05/23/19 06/01/24 History Inhaler] Omeprazole 40 mg PO QAM 05/23/19 05/30/20 History amLODIPine [Norvasc] 5 mg PO BID 05/23/19 06/01/24 History traZODone HCL [Desyrel] 100 mg PO HS 05/23/19 06/01/24 History Aspirin [Adult Low Dose Aspirin EC] 81 mg PO DAILY 02/13/20 06/01/24 History hydroCHLOROthiazide 25 mg PO DAILY 05/28/20 06/01/24 History Docusate [Colace] 100 mg PO BID #20 capsule 05/30/20 Rx HYDROcodone/APAP 5-325MG [[place] 1 tab PO Q6HR PRN #10 tab 05/30/20 Rx 5-325] Atorvastatin [Lipitor] 40 mg PO DAILY 06/01/24 06/01/24 History Famotidine 40 mg PO DAILY 06/01/24 06/01/24 History
== END ==
LOC: 3 N SLEEP 10:11
PROVIDERS: ATTEND Internal Medicine
DX: G47.33 Obstructive sleep apnea (adult) (pediatric) (principal); I10 Essential (primary) hypertension; E78.5 Hyperlipidemia, unspecified; J44.9 Chronic obstructive pulmonary disease, unspecified; Z98.890 Other specified postprocedural states; Z98.1 Arthrodesis status; Z98.41 Cataract extraction status, right eye; Z98.42 Cataract extraction status, left eye; Z96.642 Presence of left artificial hip joint; Z99.89 Dependence on other enabling machines and devices; Z79.899 Other long term (current) drug therapy; Z91.030 Bee allergy status; Z88.8 Allergy status to other drugs, medicaments and biological substances; Z91.013 Allergy to seafood; Z87.891 Personal history of nicotine dependence
CPT/HCPCS: 99212

== ENCOUNTER → 2024-11-08 | Outpatient (CLI) | payer MEDICARE ==
--- NOTE | 2024-11-08 09:28 | US ---
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 FINDINGS: EXAM MEASUREMENTS: Liver Length: 15.2 cm Gallbladder Wall: 0.2 cm CBD: 0.5 cm Right Kidney: 10.8 x 5.1 x 5.7 cm GREY IRON MOLDER NOTES: Bowel gas limits exam Pancreas: wnl Liver: unable to view left lobe due to bowel gas, right lobe cyst = 1.8 x 1.6 x 1.3cm Gallbladder: wnl Evidence for sonographic Stewart's sign: no CBD: wnl Right Kidney: inferior pole cyst = 2.6 x 2.8 x 2.1cm IMPRESSION: 1. No evidence for acute process. 2. Simple appearing right renal cyst. [facility], , 11/08/2024 9:26 AM
[2024-11-08 15:45] LABS: ALT 19 U/L (10-49); AST 24 U/L (14-35); Albumin 4.5 g/dL (3.8-4.9); Alkaline Phosphatase 68 U/L (41-126); BUN/Creat Ratio 19.33 Ratio (12.00-20.00); Blood Urea Nitrogen 23.2 mg/dL (9.0-27.0); Calcium 9.9 mg/dL (8.7-10.3); Carbon Dioxide 22.9 mmol/L (21.6-31.8); Chloride 105 mmol/L (96-109); Chol/HDL Ratio 2.92 Ratio; Glucose 102 mg/dL (70-110); Potassium 4.3 mmol/L (3.5-5.5); Sodium 141 mmol/L (135-145); Total Bilirubin 0.9 mg/dL (0.3-1.2); Total Protein 7.5 g/dL (6.2-8.2)
== END | disposition home or self-care (01) ==
LOC: RADUSWWP 08:21
PROVIDERS: ATTEND Family Medicine
DX: I10 Essential (primary) hypertension (principal); E78.2 Mixed hyperlipidemia; K82.4 Cholesterolosis of gallbladder; N28.1 Cyst of kidney, acquired
CPT/HCPCS: 36415; 76705; 80053; 80061

== ENCOUNTER → 2025-02-01 | Outpatient (CLI) | payer MEDICARE ==
[2025-02-01 10:59] VITALS: BP 135/70; PULSE 58; RESP 16; TEMP 97.9
--- NOTE | 2025-02-01 11:29 | P.PROGSL ---
Subjective DATE: 02/01/2025 FOLLOW UP VISIT. Patient with obstructive sleep apnea hypopnea syndrome return to sleep center for follow-up visit. Information from previous visit have been reviewed. Patient is using PAP equipment every night for the whole night, getting PAP supplies in time. The patient does not have significant problems with the mask, PAP unit and humidification. [place] sleepiness scale is 4, which is normal. I checked information from PAP unit. PAP unit pressure 5-12, average 9.9 cm H2O. Usage is 100% for more then 4 hours, average 7.7 hours per night. Leak is 12 l/m, which is in acceptable range. Apnea Hypopnea Index is 4.5, which is normal. MEDICATIONS have been reviewed, please see below. During physical exam: GENERAL: A pleasant patient without any distress. VITAL SIGNS: Please see below, weight is 175 lbs, patient increased weight on 11 pounds comparing with previous visit. HEENT: PERRLA, EOMI.low position of soft palate, Mallapati 4 . NECK: Supple. No JVD. LUNGS: Clear to percussion and to auscultation. Good air exchange. No wheezing or rhonchi. HEART: S1, S2 regular. ABDOMEN: Soft and nontender.[] EXTREMITIES: No clubbing or cyanosis. BREAKDOWN MAN: Awake, alert, and oriented x3. No focal deficit. Impressions: 1. Obstructive sleep apnea-hypopnea syndrome. Patient demonstrated great compliance with treatment, benefiting from treatment. 2. Hypertension. 3. COPD. 4. Hyperlipidemia. 5. Status post back surgery with L4-L5 fusion in 2022. 6. Hyperlipidemia. 7. Status post hip replacement. 8. Status post right shoulder repair. 9. Status post bilateral cataract surgery. Plan: 1. Continue using PAP equipment every night for the whole night. 2. Sleep hygiene with regular time in bed for at least 7.5-8 hours 3. PAP unit should stay lower then position of the head. 4. Advised patient to remove all remaining water from humidifier canister daily and make it dry after each usage. Refill canister with fresh distilled water before each usage. 5. Watching weight. 6. Precautions related to driving. No driving if feel any sleepiness. 7. I will maintain prescription for PAP supplies including mask, tube, filters. 8. Follow up visit in 8 months or earlier if patient has any problems. Thank you very much for allowing me to participate in the management of your patient. Lg Grajeda MD, PhD, FAASM. Diplomat of [place] [employer], Sleep Medicine Board by [place] [employer] Physical Science Professor of [facility] [place] Objective - Vital Signs Vital Signs: Vital Signs Temp 97.9 F 02/01/25 10:58 Pulse 58 L 02/01/25 10:58 Resp 16 02/01/25 10:58 BP 135/70 02/01/25 10:58 Pulse Ox 95 02/01/25 10:58 FiO2 Intake & Output 01/31/25 02/01/25 02/01/25 18:59 06:59 18:59 Weight 79.379 kg Home Medications: Home Medications Medication Instructions Recorded Confirmed Type Cetirizine HCl [Zyrtec] 10 mg PO DAILY 01/10/19 06/01/24 History Pravastatin Sodium [Pravachol] 80 mg PO HS 01/10/19 05/30/20 History Albuterol Inhaler [Ventolin Hfa 1 - 2 puff INHALATION RT-Q6H PRN 05/23/19 06/01/24 History Inhaler] Omeprazole 40 mg PO QAM 05/23/19 05/30/20 History amLODIPine [Norvasc] 5 mg PO BID 05/23/19 02/01/25 History traZODone HCL [Desyrel] 100 mg PO HS 05/23/19 02/01/25 History Aspirin [Adult Low Dose Aspirin EC] 81 mg PO DAILY 02/13/20 06/01/24 History hydroCHLOROthiazide 25 mg PO DAILY 05/28/20 06/01/24 History Docusate [Colace] 100 mg PO BID #20 capsule 05/30/20 Rx HYDROcodone/APAP 5-325MG [[place] 1 tab PO Q6HR PRN #10 tab 05/30/20 02/01/25 Rx 5-325] Atorvastatin [Lipitor] 40 mg PO DAILY 06/01/24 02/01/25 History Famotidine 40 mg PO DAILY 06/01/24 06/01/24 History Montelukast [Singulair] 10 mg PO DAILY 02/01/25 02/01/25 History
== END ==
LOC: 3 N SLEEP 10:50
PROVIDERS: ATTEND Internal Medicine
DX: G47.33 Obstructive sleep apnea (adult) (pediatric) (principal); I10 Essential (primary) hypertension; J44.9 Chronic obstructive pulmonary disease, unspecified; E78.5 Hyperlipidemia, unspecified; Z98.890 Other specified postprocedural states; Z96.649 Presence of unspecified artificial hip joint; Z98.41 Cataract extraction status, right eye; Z98.42 Cataract extraction status, left eye; Z91.030 Bee allergy status; Z91.041 Radiographic dye allergy status; Z91.013 Allergy to seafood; Z87.891 Personal history of nicotine dependence
CPT/HCPCS: 99212

== ENCOUNTER → 2025-05-11 | Outpatient (CLI) | payer MEDICARE ==
[2025-05-11 10:46] LABS: ALT 23 U/L (10-49); AST 27 U/L (14-35); Albumin/Globulin Ratio 1.43 Ratio (1.60-3.17); Alkaline Phosphatase 58 U/L (41-126); Blood Urea Nitrogen 24.2 mg/dL (9.0-27.0); Calcium 9.2 mg/dL (8.7-10.3); Carbon Dioxide 23.7 mmol/L (21.6-31.8); Chloride 105 mmol/L (96-109); Chol/HDL Ratio 2.44 Ratio; Globulin 2.8 g/dL (1.6-3.3); Glucose 111 mg/dL (70-110); LDL Cholesterol,Calculated 61.9 mg/dL (0.0-131.0); Potassium 3.6 mmol/L (3.5-5.5); Sodium 141 mmol/L (135-145); Total Bilirubin 0.7 mg/dL (0.3-1.2); Total Protein 6.8 g/dL (6.2-8.2); VLDL Calculation 16.04 mg/dL (5.00-40.00)
[2025-05-11 11:17] LABS: NT-Pro-B-Type Natriuretic Pept 167 pg/mL (0-450)
== END | disposition home or self-care (01) ==
LOC: LABWHC1 07:34
PROVIDERS: ATTEND Nurse Practitioner Adult Health
DX: I10 Essential (primary) hypertension (principal); R60.0 Localized edema; R06.02 Shortness of breath; E78.2 Mixed hyperlipidemia
CPT/HCPCS: 36415; 80053; 80061; 83880